=== PATIENT | male | born 1975 | race African-American/Black ===

== ENCOUNTER 2018-05-24 13:27 | Emergency (ER) | payer SELFPAY ==
[~2018-05-24] VITALS: Ht 177.8 cm; Wt 84.1 kg
[~2018-05-24 13:27] MED LIST: NOCURR
[2018-05-24] MEDS ORDERED: IBUPROFEN 800 MG TABLET PO ONE (15:15)
[2018-05-24 16:00] VITALS: BP 119/71
== END 2018-05-24 16:32 | disposition home or self-care (01) ==
LOC: EMS 13:29
DX: S19.9XXA Unspecified injury of neck, initial encounter (principal); V49.40XA Driver injured in collision with unspecified motor vehicles in traffic accident, initial encounter; Y93.89 Activity, other specified; Y92.89 Other specified places as the place of occurrence of the external cause; Y99.8 Other external cause status
CPT/HCPCS: 72125; 99284

== ENCOUNTER 2018-06-01 18:44 | Emergency (ER) | payer SELFPAY ==
[~2018-06-01] VITALS: Ht 177.8 cm; Wt 86.4 kg
[2018-06-01] MEDS ORDERED: AMOX TR/POT CLAV 875 MG/125 MG TABLET PO ONE (20:15)
[2018-06-01] MEDS ORDERED: IBUPROFEN 800 MG TABLET PO ONE (20:15)
[2018-06-01 20:31] VITALS: BP 125/68
== END 2018-06-01 20:34 | disposition home or self-care (01) ==
LOC: EMS 18:45
DX: H66.41 Suppurative otitis media, unspecified, right ear (principal); F12.90 Cannabis use, unspecified, uncomplicated

== ENCOUNTER 2018-09-27 06:46 | Emergency (ER) | payer MEDICAID ==
[~2018-09-27] VITALS: Ht 177.8 cm; Wt 86.4 kg
[2018-09-27 10:57] VITALS: BP 129/83
== END 2018-09-27 11:16 | disposition home or self-care (01) ==
LOC: EMS 06:48
DX: D17.79 Benign lipomatous neoplasm of other sites (principal); F12.90 Cannabis use, unspecified, uncomplicated
CPT/HCPCS: 76700

== ENCOUNTER 2019-03-30 09:23 | Emergency (ER) | payer SELFPAY ==
[~2019-03-30] VITALS: Ht 180.3 cm; Wt 84.1 kg
[2019-03-30] MEDS ORDERED: KETOROLAC TROMETHAMINE 30 MG/ML VIAL IM ONE (10:15)
[2019-03-30 11:27] VITALS: BP 110/76
== END 2019-03-30 11:49 | disposition home or self-care (01) ==
LOC: EMS 09:24
DX: S63.8X2A Sprain of other part of left wrist and hand, initial encounter (principal); F12.90 Cannabis use, unspecified, uncomplicated; W23.0XXA Caught, crushed, jammed, or pinched between moving objects, initial encounter; Y93.89 Activity, other specified; Y92.89 Other specified places as the place of occurrence of the external cause; Y99.8 Other external cause status
CPT/HCPCS: 73130; 96372; 99283; J1885

== ENCOUNTER 2020-10-17 19:47 | Emergency (ER) | payer MEDICAID ==
[~2020-10-17] VITALS: Ht 175.3 cm; Wt 80.0 kg
[2020-10-17] MEDS ORDERED: IBUPROFEN 600 MG TABLET PO ONE (20:45)
[2020-10-17 21:59] VITALS: BP 126/79
== END 2020-10-17 22:01 | disposition home or self-care (01) ==
LOC: EMS 19:47
DX: S13.4XXA Sprain of ligaments of cervical spine, initial encounter (principal); S39.012A Strain of muscle, fascia and tendon of lower back, initial encounter; F12.90 Cannabis use, unspecified, uncomplicated; V49.49XA Driver injured in collision with other motor vehicles in traffic accident, initial encounter; Y93.89 Activity, other specified; Y92.413 State road as the place of occurrence of the external cause; Y99.8 Other external cause status
CPT/HCPCS: 72040; 72100; 99284; Z7502; Z7610

== ENCOUNTER 2024-08-03 02:02 | Emergency (ER) | payer SELFPAY ==
[~2024-08-03] VITALS: Ht 177.8 cm; Wt 84.1 kg
[2024-08-03 02:20] VITALS: TEMP 99.3
[2024-08-03] MEDS: LevETIRAcetam 750 MG in DEXTROSE 5%-WATER 100 ML IV ONE (02:44)
[2024-08-03] MEDS: SODIUM CHLORIDE 0.9% 1,000 ML IV ONE (02:45)
[2024-08-03 02:47] LABS: BASOPHILS % (AUTO) 0.6 % (0.0-2.0); EOSINOPHILS % (AUTO) 1.5 % (1.0-6.0); HEMATOCRIT 45.7 % (41-53); HEMOGLOBIN 15.5 g/dL (13.5-17.5); LYMPHOCYTES # (AUTO) 0.8 K/uL (1.0-4.8); LYMPHOCYTES % (AUTO) 12.7 % (22.0-44.0); MEAN CORPUSCULAR HEMOGLOBIN 31.9 pg (26.0-34.0); MEAN CORPUSCULAR VOLUME 94 fL (80-100); MONOCYTES # (AUTO) 0.4 K/uL (0.1-1.0); MONOCYTES % (AUTO) 7.1 % (2.0-9.0); NEUTROPHILS # (AUTO) 4.8 K/uL (1.8-7.7); NEUTROPHILS % (AUTO) 78.1 % (40.0-70.0); PLATELET COUNT (AUTO) 222 K/uL (150-450); RED BLOOD CELL COUNT(AUTO) 4.86 MIL/uL (4.50-5.90); WHITE BLOOD COUNT (AUTO) 6.1 K/uL (4.5-11.0)
[2024-08-03 02:59] LABS: ANION GAP 13 mmol/L (8-16); CARBON DIOXIDE 25 mmol/L (22-29); CHLORIDE 100 mmol/L (98-107); CREATININE 1.27 mg/dL (0.60-1.30); GLOMERULAR FILTR. RATE CALC > 60 mL/min (>60); GLUCOSE,RANDOM 178 mg/dL (70-110); SODIUM SERUM 138 mmol/L (136-145); UREA NITROGEN, BLOOD 9 mg/dL (7-18)
[2024-08-03 04:05] VITALS: BP 111/76; PULSE 79; RESP 16; O2SAT 98
== END 2024-08-03 05:30 | disposition home or self-care (01) ==
LOC: EMS 02:02
DX: R56.9 Unspecified convulsions (principal); F12.90 Cannabis use, unspecified, uncomplicated
CPT/HCPCS: 99284; 96365; 80048; 85025; 36415; J0712; G0480; J7060; J7030